=== PATIENT | male | born 1975 | race Caucasian/White ===

== ENCOUNTER 2022-09-20 06:30 | Day surgery (SDC) | payer BC ==
[2022-09-20] MEDS ORDERED: fentaNYL 100 MCG/2 ML SDV IV ONE ×3 (06:31→07:01)
[2022-09-20] MEDS ORDERED: Midazolam 1 MG/ML 2 ML SDV IV ONE ×5 (06:31→07:07)
[2022-09-20] MEDS ORDERED: Midazolam 1 MG/ML 2 ML SDV ONE ×2 (06:50→07:05)
[2022-09-20] MEDS ORDERED: fentaNYL 100 MCG/2 ML SDV ONE (06:50)
[2022-09-20] MEDS ORDERED: Dextrose 5%-0.45% NaCl 1,000 ML IV SCH (07:00)
== END 2022-09-20 09:00 | disposition home or self-care (01) ==
LOC: DL.ENDO 06:30
PROVIDERS: ATTEND Internal Medicine Gastroenterology
DX: K31.89 Other diseases of stomach and duodenum (principal); R13.10 Dysphagia, unspecified; M54.50 Low back pain, unspecified; D70.9 Neutropenia, unspecified; E78.5 Hyperlipidemia, unspecified; R73.9 Hyperglycemia, unspecified; E66.09 Other obesity due to excess calories; Z98.890 Other specified postprocedural states; Z68.28 Body mass index [BMI] 28.0-28.9, adult
CPT/HCPCS: 43239; 87077; J2250; J3010; J7042

== ENCOUNTER 2023-12-02 17:03 | Emergency (ER) | payer BC, OTHER ==
[2023-12-02] MEDS: Dexamethasone 4 MG/ML SDV IM ONE (17:21)
== END 2023-12-02 17:25 | disposition home or self-care (01) ==
LOC: DL.ED 17:03
DX: S39.012A Strain of muscle, fascia and tendon of lower back, initial encounter (principal); E66.9 Obesity, unspecified; Z68.31 Body mass index [BMI] 31.0-31.9, adult; X50.0XXA Overexertion from strenuous movement or load, initial encounter
CPT/HCPCS: 96372; 99283; J1100